=== PATIENT | male | born 1995 | race Caucasian/White ===

== ENCOUNTER 2017-02-03 07:58 | Emergency (ER) | payer SELFPAY ==
[~2017-02-03] VITALS: Ht 175.3 cm; Wt 83.9 kg
[2017-02-03 09:12] VITALS: BP 113/61
== END 2017-02-03 09:12 | disposition home or self-care (01) ==
LOC: ED 07:58
DX: S81.812A Laceration without foreign body, left lower leg, initial encounter (principal); F10.129 Alcohol abuse with intoxication, unspecified; W22.8XXA Striking against or struck by other objects, initial encounter; Y93.89 Activity, other specified; Y99.8 Other external cause status; Y92.89 Other specified places as the place of occurrence of the external cause

== ENCOUNTER 2017-02-07 08:09 | Emergency (ER) | payer SELFPAY ==
[2017-02-07 08:34] VITALS: BP 125/79
== END 2017-02-07 10:37 | disposition home or self-care (01) ==
LOC: ED 08:09
DX: S81.812D Laceration without foreign body, left lower leg, subsequent encounter (principal); X58.XXXD Exposure to other specified factors, subsequent encounter; Y92.89 Other specified places as the place of occurrence of the external cause; Y99.8 Other external cause status

== ENCOUNTER 2017-02-16 05:37 | Emergency (ER) | payer SELFPAY ==
[~2017-02-16] VITALS: Ht 177.8 cm; Wt 81.6 kg
[2017-02-16 06:00] VITALS: BP 136/84
== END 2017-02-16 06:45 | disposition home or self-care (01) ==
LOC: ED 05:37
DX: S81.812D Laceration without foreign body, left lower leg, subsequent encounter (principal); W22.8XXD Striking against or struck by other objects, subsequent encounter; Y92.89 Other specified places as the place of occurrence of the external cause; Y99.8 Other external cause status